=== PATIENT | male | born 1990 | race Caucasian/White ===

== ENCOUNTER → 2021-12-07 09:04 | Outpatient (BNVA) | payer OTHER, SELFPAY | PROVIDERS: Family Provider Pediatrics Adolescent Medicine; PCP Family Medicine; Visit Provider Family Medicine | DX: M62.830 Muscle spasm of back (principal); T78.40XA Allergy, unspecified, initial encounter; K62.89 Other specified diseases of anus and rectum; Z30.09 Encounter for other general counseling and advice on contraception | CPT/HCPCS: 80053; 80061; 85025 ==

== ENCOUNTER → 2024-07-11 08:52 | Outpatient (BNVA) | payer BC, SELFPAY | PROVIDERS: PCP Family Medicine; Visit Provider Family Medicine | DX: Z13.6 Encounter for screening for cardiovascular disorders (principal) | CPT/HCPCS: 80053; 80061; 85025 ==